=== PATIENT | female | born 1955 | race Caucasian/White ===

== ENCOUNTER 2018-12-11 03:37 | Inpatient (IN) | payer OTHER ==
[~2018-12-11] VITALS: Ht 152.4 cm; Wt 83.3 kg
[2018-12-11] VITALS (17 sets, daily range): BP systolic 137–178; BP diastolic 66–92; PULSE 65–79; RESP 14–20; Ht 152.4 cm; Wt 83.3 kg
[~2018-12-11 03:37] MED LIST: AMLO-145 PO; HYDR-3601 PO
[2018-12-11] MEDS ORDERED: NACL 0.9% 3 ML SYG IV SCH (06:00)
[2018-12-11] MEDS ORDERED: ACETAMINOPHEN 325 MG TAB PO PRN (06:00)
[2018-12-11] MEDS ORDERED: HYDROCODONE/APAP (5/325) TAB PO PRN ×2 (06:00)
[2018-12-11] MEDS ORDERED: ONDANSETRON 4 MG INJ IV PRN ×2 (06:00→21:30)
[2018-12-11] MEDS ORDERED: morphine 4 MG/ML VIAL IV PRN (07:30)
[2018-12-11] MEDS ORDERED: HYDROmorphONE 1 MG/ML SYG IV ONE (08:00)
[2018-12-11] MEDS: hydrALAzine 20 MG INJ IV PRN ×2 (15:17→20:07)
[2018-12-11] MEDS: HYDROmorphONE 1 MG/ML SYG IV PRN ×2 (16:12→23:40)
[2018-12-11] MEDS: HEPARIN 5,000 UNIT/1 ML VIAL SC SCH (20:07)
[2018-12-11] MEDS ORDERED: FENTAnyl 50 MCG/ML VIAL ONE (21:29)
[2018-12-11] MEDS ORDERED: LABETALOL HCL 20MG INJ IV PRN (21:30)
[2018-12-11] MEDS ORDERED: OXYCODONE/ACETAMINOPHEN (5/325) TAB PO PRN ×2 (21:30)
[2018-12-11] MEDS ORDERED: IPRATROPIUM (NEB) 0.5 MG/2.5 ML AMP HHN PRN (21:30)
[2018-12-11] MEDS ORDERED: hydrALAzine 20 MG INJ IV PRN (21:30)
[2018-12-11] MEDS ORDERED: ALBUTEROL 0.083% (NEB) 2.5 MG/3 ML AMP HHN PRN (21:30)
[2018-12-11] MEDS ORDERED: FENTAnyl 50 MCG/ML VIAL IV PRN ×3 (21:30)
[2018-12-11] MEDS ORDERED: DIPHENHYDRAMINE 50 MG INJ IV PRN (21:30)
[2018-12-11] MEDS ORDERED: EPHEDrine 25 MG/5 ML SYG IV PRN (21:30)
[2018-12-11] MEDS ORDERED: HYDROmorphONE 1 MG/5 ML IV SYRINGE IV PRN ×3 (21:30)
[2018-12-11] MEDS ORDERED: MEPERIDINE 25 MG INJ IV PRN (21:30)
[2018-12-11] MEDS ORDERED: PROPOFOL 20 ML ONE (21:49)
[2018-12-11] MEDS ORDERED: LIDOCAINE 100 MG SYRINGE ONE (21:49)
[2018-12-12 02:08] VITALS: BP 154/78; PULSE 71; RESP 18
[2018-12-12 08:00] VITALS: BP 139/78; PULSE 81; RESP 18
[2018-12-12] MEDS: HEPARIN 5,000 UNIT/1 ML VIAL SC SCH (08:37)
[2018-12-12] MEDS ORDERED: AMLODIPINE 5 MG TAB PO SCH (09:00)
== END 2018-12-12 14:15 | disposition home or self-care (01) | DRG 563 ==
LOC: 5EC 04:44
PROVIDERS: ADMIT Internal Medicine; ATTEND Internal Medicine
PROC: 0RSKXZZ Reposition Left Shoulder Joint, External Approach (ICD-10-PCS; principal; 2018-12-11 15:30)
DX: S43.015A Anterior dislocation of left humerus, initial encounter (principal); W01.0XXA Fall on same level from slipping, tripping and stumbling without subsequent striking against object, initial encounter; I10 Essential (primary) hypertension; E66.9 Obesity, unspecified; Z68.35 Body mass index [BMI] 35.0-35.9, adult
CPT/HCPCS: 73030; 80048; 80053; 83735; 84100; 85025; 97161; J0360; J1170; J1644; J2001; J2270; J3010